=== PATIENT | male | born 1950 | race Caucasian/White ===

== ENCOUNTER → 2016-07-13 | Outpatient (CLI) | payer BC ==
[2016-07-13 14:33] LABS: INFLUENZA VIRUS TYPE A ANTIBOD Negative (NEGATIVE); INFLUENZA VIRUS TYPE B ANTIBOD Negative (NEGATIVE)
== END ==
LOC: LAB 13:50
PROVIDERS: ATTEND Internal Medicine
DX: Z51.81 Encounter for therapeutic drug level monitoring (principal); Z79.01 Long term (current) use of anticoagulants; R05 Cough
CPT/HCPCS: 36415; 85610; 87070; 87502; 87651

== ENCOUNTER → 2016-09-18 | Outpatient (CLI) | payer BC ==
[~2016-09-18] MED LIST: ATOR10TA PO; DUTA0.5C PO; DXZS4T PO; FEXO-95 PO; FLUT16SP NS; TADA5TAB2 PO; TAMS0.4C2 PO; WARF7.5T3 PO; ZLP10T PO
== END ==
LOC: LAB 16:58
PROVIDERS: ATTEND Internal Medicine
DX: D68.2 Hereditary deficiency of other clotting factors (principal)
CPT/HCPCS: 36415; 85610